=== PATIENT | male | born 1995 | race Caucasian/White ===

== ENCOUNTER 2018-02-20 19:04 | Emergency (ER) | payer BC, OTHER ==
[2018-02-20 19:52] VITALS: BP 107/62; PULSE 99; RESP 18; TEMP 99.7; O2SAT 99
--- NOTE | 2018-02-20 20:16 | ED PDOC ---
HPI: General Adult Time Seen by Provider: 02/20/18 20:14 Chief Complaint (Nursing): Fever Chief Complaint (Provider): fever/sore throat History Per: Patient (22 y/o male here with sore throat associated with fever x 1 day. Has had bodyaches associated with sore throat. No ill contact. Took advil at 6pm) Past Medical History Reviewed: Historical Data, Nursing Documentation, Vital Signs Vital Signs: Last Vital Signs Temp 99.7 F H 02/20/18 19:48 Pulse 99 H 02/20/18 19:48 Resp 18 02/20/18 19:48 BP 107/62 02/20/18 19:48 Pulse Ox 99 02/20/18 20:15 - Medical History PMH: HTN Denies: Chronic Kidney Disease - Family History Family History: States: Unknown Family Hx - Home Medications Home Medications: Ambulatory Orders Medication Instructions Recorded Losartan [Cozaar] 12.5 mg PO DAILY 10/20/15 oxyCODONE/Acetaminophen [Percocet 1 tab PO Q6 PRN #0 tab 10/21/15 5/325 mg Tab] Ibuprofen [Motrin] 600 mg PO Q8 PRN #21 tab 02/20/18 - Allergies Allergies/Adverse Reactions: Allergies Allergy/AdvReac Type Severity Reaction Status Date / Time No Known Allergies Allergy Verified 10/06/15 11:54 Review of Systems ROS Statement: Except As Marked, All Systems Reviewed And Found Negative Physical Exam - Reviewed Nursing Documentation Reviewed: Yes Vital Signs Reviewed: Yes - Physical Exam Appears: Positive for: Well, Non-toxic, No Acute Distress Head Exam: Positive for: ATRAUMATIC, NORMAL INSPECTION, NORMOCEPHALIC Skin: Positive for: Normal Color, Warm, DRY Eye Exam: Positive for: EOMI, Normal appearance, PERRL ENT: Positive for: Normal ENT Inspection Neck: Positive for: Normal, Painless ROM Cardiovascular/Chest: Positive for: Regular Rate, Rhythm Respiratory: Positive for: CNT, Normal Breath Sounds Gastrointestinal/Abdominal: Positive for: Normal Exam, Soft Back: Positive for: Normal Inspection Extremity: Positive for: Normal ROM Neurologic/Psych: Positive for: Alert, Oriented - ECG O2 Sat by Pulse Oximetry: 99 - Progress ED Course And Treament: RAPID STREP: NEG Disposition - Clinical Impression Clinical Impression: Pharyngitis - Patient ED Disposition Is Patient to be Admitted: No - Disposition Disposition: Routine/Home Disposition Time: 20:48 Condition: FAIR Prescriptions: Ibuprofen [Motrin] 600 mg PO Q8 PRN #21 tab PRN Reason: Pain, Moderate (4-7) Instructions: Viral Pharyngitis Forms: [facility] ED School/Work Excuse
== END 2018-02-20 21:20 | disposition home or self-care (01) ==
LOC: EDUNIT# → H.ER 19:04 → EDBD 19:04 → H.ER 21:20
DX: J02.9 Acute pharyngitis, unspecified (principal); I10 Essential (primary) hypertension